=== PATIENT | male | born 1965 | race Caucasian/White ===

== ENCOUNTER 2020-02-24 10:45 | Inpatient (IN) | payer BC, SELFPAY ==
[~2020-02-24] VITALS: Ht 180.3 cm; Wt 95.7 kg
[2020-02-24 10:47] VITALS: Ht 180.3 cm; Wt 95.7 kg
[2020-02-24 12:39] LABS: BASOPHIL % 0.3 % (0.2-1.5); PLATELET COUNT 398 x10^3mcL (152-348); RED CELL DISTRIBUTION WIDTH 13.1 % (12.1-16.2)
[2020-02-24 13:01] LABS: rbc morphology (normal/abnorm) NORMAL (NORMAL)
[2020-02-24 13:22] LABS: CALCIUM 8.2 mg/dL (8.5-10.1); CARBON DIOXIDE 21.6 mmol/L (21-32); CHLORIDE SERUM 100 mmol/L (98-107); CREATININE SERUM 1.2 mg/dL (0.7-1.3); GFR1 > 60 mL/min; GLUCOSE SERUM 92 mg/dL (74-106); POTASSIUM SERUM 3.9 mmol/L (3.5-5.1); SODIUM SERUM 134 mmol/L (136-145)
[2020-02-24 13:27] LABS: ALKALINE PHOSPHATASE 78 U/L (46-116); ALT/SGPT 51 U/L (16-63); AST/SGOT 53 U/L (15-37); BILIRUBIN TOTAL 0.48 mg/dL (0.20-1.00); TOTAL PROTEIN, SERUM 6.7 g/dL (6.4-8.2)
[2020-02-24 13:33] LABS: ALBUMIN 2.2 g/dL (3.4-5.0); LACTIC DEHYDROGENASE (LDH) 797 U/L (100-190)
[2020-02-24 14:19] LABS: C REACTIVE PROTEIN 33.9 mg/dL (<=0.9)
[2020-02-24 15:37] LABS: microscopic required? YES; urine erythrocyte TRACE (NEGATIVE)
[2020-02-24 16:16] VITALS: BP 140/86
[2020-02-24 20:58] VITALS: BP 140/83
[2020-02-25 04:55] VITALS: BP 153/84
[2020-02-25 08:39] LABS: BASOPHIL % 0.1 % (0.2-1.5); PLATELET COUNT 353 x10^3mcL (152-348); RED CELL DISTRIBUTION WIDTH 13.5 % (12.1-16.2)
[2020-02-25 08:53] LABS: CALCIUM 8.6 mg/dL (8.5-10.1); CARBON DIOXIDE 22.1 mmol/L (21-32); CHLORIDE SERUM 107 mmol/L (98-107); CREATININE SERUM 1.2 mg/dL (0.7-1.3); GFR1 > 60 mL/min; GLUCOSE SERUM 100 mg/dL (74-106); POTASSIUM SERUM 5.2 mmol/L (3.5-5.1); SODIUM SERUM 140 mmol/L (136-145)
[2020-02-25 09:15] VITALS: BP 133/71
[2020-02-25 09:25] LABS: ALBUMIN 2.1 g/dL (3.4-5.0); BILIRUBIN DIRECT 0.2 mg/dL (0.0-0.2); BILIRUBIN TOTAL 0.4 mg/dL (0.20-1.00); TOTAL PROTEIN, SERUM 6.3 g/dL (6.4-8.2)
[2020-02-25 10:32] LABS: rbc morphology (normal/abnorm) NORMAL (NORMAL)
[2020-02-25 18:03] VITALS: BP 136/79
[2020-02-25 21:05] VITALS: BP 138/84
[2020-02-26 05:55] VITALS: BP 138/79
[2020-02-26 08:42] VITALS: BP 147/83
[2020-02-26 09:51] LABS: BASOPHIL % 0.2 % (0.2-1.5); RED CELL DISTRIBUTION WIDTH 13.3 % (12.1-16.2)
[2020-02-26 10:59] LABS: PLATELET COUNT 413 x10^3mcL (152-348)
[2020-02-26 11:17] VITALS: BP 138/74
[2020-02-26 12:03] LABS: BILIRUBIN DIRECT 0.18 mg/dL (0.0-0.2); BILIRUBIN TOTAL 0.4 mg/dL (0.20-1.00)
[2020-02-26 12:06] LABS: ALBUMIN 2.4 g/dL (3.4-5.0); TOTAL PROTEIN, SERUM 5.9 g/dL (6.4-8.2)
[2020-02-26 13:07] LABS: rbc morphology (normal/abnorm) NORMAL (NORMAL)
[2020-02-26 14:21] LABS: CALCIUM 8.9 mg/dL (8.5-10.1); CARBON DIOXIDE 20.4 mmol/L (21-32); CHLORIDE SERUM 108 mmol/L (98-107); CREATININE SERUM 1.1 mg/dL (0.7-1.3); GFR1 > 60 mL/min; GLUCOSE SERUM 95 mg/dL (74-106); POTASSIUM SERUM 4.5 mmol/L (3.5-5.1); SODIUM SERUM 143 mmol/L (136-145)
[2020-02-26 17:05] VITALS: BP 138/77
[2020-02-26 21:11] VITALS: BP 139/79
[2020-02-27 05:43] VITALS: BP 127/84
[2020-02-27 08:55] LABS: BASOPHIL % 0.1 % (0.2-1.5); RED CELL DISTRIBUTION WIDTH 13.5 % (12.1-16.2)
[2020-02-27 09:15] LABS: CALCIUM 8.2 mg/dL (8.5-10.1); CARBON DIOXIDE 25.3 mmol/L (21-32); CHLORIDE SERUM 106 mmol/L (98-107); GFR1 > 60 mL/min; GLUCOSE SERUM 95 mg/dL (74-106); POTASSIUM SERUM 4.5 mmol/L (3.5-5.1); SODIUM SERUM 141 mmol/L (136-145)
[2020-02-27 09:23] LABS: BILIRUBIN DIRECT 0.24 mg/dL (0.0-0.2); BILIRUBIN TOTAL 0.5 mg/dL (0.20-1.00); TOTAL PROTEIN, SERUM 6.3 g/dL (6.4-8.2)
[2020-02-27 09:25] LABS: ALBUMIN 2.3 g/dL (3.4-5.0)
[2020-02-27 09:52] VITALS: BP 120/70
[2020-02-27 10:18] LABS: PLATELET COUNT 470 x10^3mcL (152-348)
[2020-02-27 10:38] LABS: rbc morphology (normal/abnorm) NORMAL (NORMAL)
[2020-02-27 12:49] VITALS: BP 1130/79; BP 125/77
[2020-02-27 18:01] VITALS: BP 126/72
[2020-02-27 21:05] VITALS: BP 125/71
[2020-02-28 05:35] VITALS: BP 135/81
[2020-02-28 07:28] LABS: BASOPHIL % 0.1 % (0.2-1.5); PLATELET COUNT 389 x10^3mcL (152-348); RED CELL DISTRIBUTION WIDTH 13.1 % (12.1-16.2)
[2020-02-28 08:04] LABS: rbc morphology (normal/abnorm) NORMAL (NORMAL)
[2020-02-28 08:14] LABS: C REACTIVE PROTEIN 6.2 mg/dL (<=0.9); CARBON DIOXIDE 26.3 mmol/L (21-32); CHLORIDE SERUM 105 mmol/L (98-107); GFR1 > 60 mL/min; GLUCOSE SERUM 78 mg/dL (74-106); POTASSIUM SERUM 3.7 mmol/L (3.5-5.1); SODIUM SERUM 140 mmol/L (136-145)
[2020-02-28 08:16] LABS: BILIRUBIN DIRECT 0.25 mg/dL (0.0-0.2); BILIRUBIN TOTAL 0.54 mg/dL (0.20-1.00)
[2020-02-28 09:05] LABS: ALBUMIN 2.3 g/dL (3.4-5.0); TOTAL PROTEIN, SERUM 5.8 g/dL (6.4-8.2)
[2020-02-28 12:19] VITALS: BP 107/65
[2020-02-28 16:41] VITALS: BP 121/72
[2020-02-28 23:27] VITALS: BP 118/71
[2020-02-29 06:34] VITALS: BP 119/72
[2020-02-29 07:13] LABS: BASOPHIL % 0.3 % (0.2-1.5); RED CELL DISTRIBUTION WIDTH 13.4 % (12.1-16.2)
[2020-02-29 07:32] LABS: PLATELET COUNT 419 x10^3mcL (152-348)
[2020-02-29 07:50] LABS: C REACTIVE PROTEIN 4.2 mg/dL (<=0.9); CALCIUM 8.4 mg/dL (8.5-10.1); CARBON DIOXIDE 29.7 mmol/L (21-32); CHLORIDE SERUM 105 mmol/L (98-107); GFR1 > 60 mL/min; GLUCOSE SERUM 82 mg/dL (74-106); POTASSIUM SERUM 5.1 mmol/L (3.5-5.1); SODIUM SERUM 140 mmol/L (136-145); rbc morphology (normal/abnorm) NORMAL (NORMAL)
[2020-02-29 08:28] VITALS: BP 117/75
[2020-02-29 13:22] VITALS: BP 131/72
[2020-02-29 16:36] VITALS: BP 123/74
[2020-02-29 20:40] VITALS: BP 119/72
[2020-03-01 05:34] VITALS: BP 116/82
[2020-03-01 09:08] VITALS: BP 117/74
[2020-03-01 11:52] VITALS: BP 123/77
[2020-03-01 16:41] VITALS: BP 118/73
[2020-03-01 19:50] VITALS: BP 117/74
[2020-03-02 05:45] VITALS: BP 124/84
[2020-03-02 09:16] VITALS: BP 120/77
[2020-03-02] MEDS ORDERED: ELIQUIS5 MG PO (10:26)
[2020-03-02] MEDS ORDERED: ZINC SULFATE220 MG PO (10:26)
[2020-03-02] MEDS ORDERED: MUCINEX600 MG PO (10:26)
[2020-03-02] MEDS ORDERED: VITC PO (10:27)
[2020-03-02] MEDS ORDERED: KEN025C TOP (10:27)
[2020-03-02] MEDS ORDERED: DECADRON4 MG PO (10:27)
[2020-03-02] MEDS ORDERED: PROAIR RES117 MCG/Ac INH (10:28)
[2020-03-02 11:01] VITALS: BP 120/87
[2020-03-02 12:07] VITALS: BP 124/85
== END 2020-03-02 12:23 | disposition home or self-care (01) | DRG 177 ==
LOC: ED 10:45 → DU 13:03 → EDBEDREQ 13:04 → DU 15:46
PROVIDERS: Emergency Medicine; ADMIT Family Medicine; ATTEND Family Medicine
PROC: XW033E5 Introduction of Remdesivir Anti-infective into Peripheral Vein, Percutaneous Approach, New Technology Group 5 (ICD-10-PCS; 2020-02-24)
PROC: XW13325 Transfusion of Convalescent Plasma (Nonautologous) into Peripheral Vein, Percutaneous Approach, New Technology Group 5 (ICD-10-PCS; principal; 2020-02-25)
DX: U07.1 COVID-19 (principal); J12.89 Other viral pneumonia; J96.01 Acute respiratory failure with hypoxia; I26.99 Other pulmonary embolism without acute cor pulmonale; I10 Essential (primary) hypertension; Z79.899 Other long term (current) drug therapy
CPT/HCPCS: 36600; 83880; 85378; 87804; G0378; J0456; J0696; J1100; J1644; J1650; J2060; J7030; J7050; Q9967; U0003